=== PATIENT | female | born 1965 | race African-American/Black ===

== ENCOUNTER 2016-12-11 10:01 | Emergency (ER) | payer MEDICAID, OTHER ==
[~2016-12-11] VITALS: Ht 160 cm; Wt 114.0 kg
[~2016-12-11 10:01] MED LIST: ASPI-94 PO; FIORIC PO; GLIP5TAB8 PO; LISI-363 PO; LISI10TA PO; METF-324 PO; METO25 PO; RANI150T PO
[2016-12-11 10:27] VITALS: BP 130/75; PULSE 80; RESP 15; TEMP 97.9; O2SAT 98
[2016-12-11] MEDS ORDERED: LISI10TA PO (11:01)
[2016-12-11] MEDS ORDERED: METF-382 PO (11:01)
[2016-12-11] MEDS ORDERED: ASPI81CH37 CHEW (11:01)
[2016-12-11] MEDS ORDERED: LISI-515 PO (11:01)
[2016-12-11] MEDS ORDERED: METO25TA3 PO (11:01)
--- NOTE | 2016-12-11 11:15 | PD ---
HPI Chief Complaint: Legislative Assistant Problem/Complaint Time Seen by Provider: 11:03 Travel History International Travel<30 days: No Contact w/Intl Traveler<30days: No Traveled to known affect area: No History of Present Illness HPI 51-year-old female with history of diabetes, HTN, HLD here with complaint of 4- 5 days of vaginal itching and discomfort. She notes a slight increase in her vaginal discharge. She denies any new sexual partners, high-risk sexual behavior. Pain is really within the vaginal vault, no pain within the pelvis, abdomen. She denies any history of STD. Slight pain with urination, but no urinary frequency, hematuria, flank pain. PFSH Past Medical History Hx Anticoagulant Therapy: Yes (BABY ASPIRIN A DAY) Anemia: Yes Cardiovascular Problems: Yes (HTN) High Cholesterol: Yes Diabetes: Yes Patient Takes Glucophage: Yes Diminished Hearing: No GERD: Yes Hypertension: Yes Neurologic: Yes (PVD) ?: Not Menopausal: Yes Past Surgical History Section: Yes Cholecystectomy: Yes (IN 2005) Family History Family Hypercholesterolemia: Yes Social History Alcohol Use: Yes (2 BEERS DAILY) Tobacco Use: No Substance Use: No Allergies-Medications (Allergen,Severity, Reaction): Coded Allergies: Codeine (Verified Allergy, Severe, Hallucinations, 12/29/15) Reported Meds & Prescriptions Reported Meds & Active Scripts Active Flagyl (Metronidazole) 500 Mg Tab 500 Mg PO TID 7 Days Glipizide 5 Mg Tab 5 Mg PO BIDAC Take 30 minutes before a meal Reported Metoprolol Tartrate 25 Mg Tab 25 Mg PO BID Metformin ER (Metformin HCl) 1,000 Mg Luciano 1,000 Mg PO BID With evening meal Lisinopril-Hctz 10-12.5 Mg Tab 1 Tab PO DAILY Lisinopril 20 Mg Tab 20 Mg PO DAILY Aspirin Low Dose (Aspirin) 81 Mg Chew 81 Mg CHEW DAILY Review of Systems Except as stated in HPI: all other systems reviewed are Neg Physical Exam Narrative GENERAL: Morbidly obese female in no acute distress SKIN: Warm and dry. HEAD: Normocephalic. EYES: No scleral icterus. No injection or drainage. ENT: Poor dentition NECK: Supple CARDIOVASCULAR: Regular rate and rhythm. RESPIRATORY: No accessory muscle use. GASTROINTESTINAL: Abdomen soft, non-tender, nondistended. GENITOURINARY: Normal external female genitalia. Speculum examination reveals chunky white vaginal discharge with mild erythema of the vaginal wall and cervix. No cervical motion tenderness, uterine or adnexal tenderness or fullness on exam MUSCULOSKELETAL: Normal gait NEUROLOGICAL: Awake and alert. Normal speech. PSYCHIATRIC: Appropriate mood and affect; insight and judgment normal. Data Data Last Documented VS Vital Signs Date Time Temp Pulse Resp B/P Pulse Ox O2 Delivery O2 Flow Rate FiO2 12/11/16 10:27 97.9 80 15 130/75 98 Orders Gc And Chlamydia Pcr (12/11/16 11:05) Wet Prep Profile (12/11/16 11:05) Urinalysis - C+S If Indicated (12/11/16 11:12) Urine Culture (12/11/16 11:22) Labs Laboratory Tests Test 12/11/16 11:22 Urine Color LIGHT-YELLOW Urine Turbidity HAZY Urine pH 5.0 Urine Specific [place] 1.020 Urine Protein NEG mg/dL Urine Glucose (UA) 1000 mg/dL Urine Ketones NEG mg/dL Urine Occult Blood NEG Urine Nitrite NEG Urine Bilirubin NEG Urine Urobilinogen LESS THAN 2.0 MG/DL Urine Leukocyte Esterase LARGE Urine RBC 8 /hpf Urine WBC 9 /hpf Urine Squamous Epithelial 4 /hpf Cells Urine Bacteria MOD /hpf Urine Mucus FEW /lpf Microscopic Urinalysis Comment CULTURE INDICATED Clue Cells (Wet Prep) PRESENT Vaginal Trichomonas (Wet Prep) NONE SEEN Vaginal Yeast (Wet Prep) NONE SEEN MDM Medical Decision Making Medical Screen Exam Complete: Yes Emergency Medical Condition: Yes Medical Record Reviewed: Yes Differential Diagnosis 51-year-old female here with complaint of 4-5 days of vaginal itching and discomfort, slight vaginal discharge. Differential includes bacterial vaginosis , yeast infection, vaginitis, UTI. Trichomonas, GC and Chlamydia are other STD less likely given benign pelvic examination. Narrative Course Would not empirically treat her for gonorrhea or chlamydia based on her examination and symptoms. GC and Chlamydia sent. Wet prep, urinalysis showed bacterial vaginosis. Large leukocyte esterase with white cells and bacteria. Diagnosis Primary Impression: Bacterial vaginosis Additional Impression: Cystitis Referrals: Primary Care Physician as needed Patient Instructions: Bacterial Vaginosis (ED), General Instructions, Urinary Tract Infection in Women (DC) Additional Instructions: Finish antibiotics as prescribed. Med/Other Pt SpecificInfo: Prescription(s) given Scripts Sulfamethoxazole-Trimethoprim (Bactrim DS)800-160 Mg Tab1 Tab PO BID #6 TAB Ref 0 Prov:Amy Peck MD 12/11/16 Metronidazole (Flagyl)500 Mg [id number] Mg PO TID 7 Days Ref 0 Prov:Amy Peck MD 12/11/16 Disposition: 01 DISCHARGE HOME Condition: Stable Amy Peck MD Dec 11, 2016 11:15
[2016-12-11] MEDS ORDERED: METR-1 PO (12:14)
[2016-12-11 12:20] LABS: BACTERIA, URINE MOD /hpf; BLOOD, URINE NEG (NEG); COMMENT (UR) CULTURE INDICATED; CULTURE IF INDICATED CULTURE INDICATED; GLUCOSE,URINE 1000 mg/dL (NEG); KETONE, URINE NEG (NEG); MUCUS URINE FEW /lpf (OCC); NITRITE,URINE NEG (NEG); SQUAMOUS EPITHELIAL CELL URINE 4 /hpf (0-5); URINE COLOR LIGHT-YELLOW (YELLW/STRAW)
[2016-12-11] MEDS ORDERED: BACT800T5 PO (12:28)
[2016-12-11 15:20] LABS: CHLAMYDIA PCR NOT DETECTED (NOT DETECT); NEISSERIA PCR NOT DETECTED (NOT DETECT)
[2016-12-25] MEDS ORDERED: GLIP5TAB8 PO (13:35)
[2016-12-25] MEDS ORDERED: LISI10TA PO (13:36)
[2016-12-25] MEDS ORDERED: LISI-515 PO (13:36)
[2016-12-30] MEDS ORDERED: GABA300C5 PO (12:12)
[2016-12-30] MEDS ORDERED: METO25TA3 PO (12:12)
[2016-12-30] MEDS ORDERED: RANI150C PO (12:12)
[2017-01-13] MEDS ORDERED: LISI20TA PO (10:37)
[2017-01-13] MEDS ORDERED: HYDR12.57 PO (10:56)
[2017-01-13] MEDS ORDERED: GLIP10TA6 PO (10:56)
[2017-01-13] MEDS ORDERED: LISI30TA4 PO (10:56)
[2017-01-13] MEDS ORDERED: METF-382 PO (10:58)
== END 2016-12-11 12:50 | disposition home or self-care (01) ==
LOC: NEPB 10:01
DX: N76.0 Acute vaginitis (principal); N30.90 Cystitis, unspecified without hematuria; B96.20 Unspecified Escherichia coli [E. coli] as the cause of diseases classified elsewhere; I10 Essential (primary) hypertension; E11.9 Type 2 diabetes mellitus without complications; E78.00 Pure hypercholesterolemia, unspecified; Z79.82 Long term (current) use of aspirin; Z79.84 Long term (current) use of oral hypoglycemic drugs; Z86.2 Personal history of diseases of the blood and blood-forming organs and certain disorders involving the immune mechanism; Z86.79 Personal history of other diseases of the circulatory system; Z87.19 Personal history of other diseases of the digestive system; Z86.69 Personal history of other diseases of the nervous system and sense organs
CPT/HCPCS: 81001; 87077; 87086; 87186; 87210; 87491; 87591; 99283

== ENCOUNTER → 2017-01-07 | Outpatient (CLI) | payer MEDICAID, OTHER ==
[~2017-01-07] MED LIST changes: -ASPI-94 PO; +ASPI81CH37 CHEW; -FIORIC PO; +GABA300C5 PO; +GLIP10TA6 PO; +HYDR12.57 PO; -LISI-363 PO; +LISI-515 PO; +LISI20TA PO; +LISI30TA4 PO; -METF-324 PO; +METF-382 PO; -METO25 PO; +METO25TA3 PO; +RANI150C PO; -RANI150T PO
[2017-01-07 08:09] LABS: HEMATOCRIT 37.3 % (35.0-46.0); MEAN CELL VOLUME 88.7 FL (80.0-100.0); MEAN CORPUSCULAR HEMOGLOBIN 29.5 PG (27.0-34.0); MEAN CORPUSCULAR HGB CONC 33.3 % (32.0-36.0); PLATELET COUNT 319 TH/MM3 (150-450); RED CELL DISTRIBUTION WIDTH 13.7 % (11.6-17.2); REVIEW FLAG FINAL; WHITE BLOOD COUNT 8.6 TH/MM3 (4.0-11.0)
[2017-01-07 08:30] LABS: ALT (GPT) 23 U/L (10-53); ANION GAP 8 MEQ/L (5-15); AST (GOT) 15 U/L (15-37); BICARBONATE 26.5 MEQ/L (21.0-32.0); BLOOD UREA NITROGEN 6 MG/DL (7-18); CHLORIDE 103 MEQ/L (98-107); GLOMERULAR FILTRATION RATE 123 ML/MIN (>89); GLUCOSE,FASTING 235 MG/DL (74-99); POTASSIUM 3.9 MEQ/L (3.5-5.1); SODIUM (NA) 137 MEQ/L (136-145)
[2017-01-07 08:39] LABS: ALKALINE PHOSPHATASE 100 U/L (45-117); LDL CHOLESTEROL 117 MG/DL (0-99); TOTAL BILIRUBIN ADULT 0.3 MG/DL (0.2-1.0)
[2017-01-07 16:05] LABS: HEMOGLOBIN A1a 1.5 %; HEMOGLOBIN A1b 2.9 %; HEMOGLOBIN Ao 76.9 %; HEMOGLOBIN LA1C 2.8 %; HEMOGLOBIN P3 4.5 %
== END ==
LOC: CLAB 07:36
PROVIDERS: ATTEND Nurse Practitioner Family
DX: E11.9 Type 2 diabetes mellitus without complications (principal); I10 Essential (primary) hypertension; E66.9 Obesity, unspecified
CPT/HCPCS: 36415; 80053; 80061; 83036; 84443; 85027

== ENCOUNTER → 2017-04-07 | Outpatient (CLI) | payer SELFPAY ==
[~2017-04-07] MED LIST changes: -GLIP5TAB8 PO; -LISI-515 PO; -LISI10TA PO; -LISI20TA PO
[2017-04-07 10:26] LABS: HDL CHOLESTEROL 45.7 MG/DL (40.0-60.0); LDL CHOLESTEROL 97 MG/DL (0-99)
[2017-04-07 16:49] LABS: HEMOGLOBIN A1a 1.2 %; HEMOGLOBIN A1b 2.7 %; HEMOGLOBIN Ao 78.2 %; HEMOGLOBIN LA1C 3.2 %; HEMOGLOBIN P3 4.6 %
== END ==
LOC: CLAB 09:29
PROVIDERS: ATTEND Nurse Practitioner Family
DX: E11.9 Type 2 diabetes mellitus without complications (principal); E78.2 Mixed hyperlipidemia
CPT/HCPCS: 36415; 80061; 83036

== ENCOUNTER → 2017-06-23 | Outpatient (CLI) | payer OTHER ==
[~2017-06-23] MED LIST changes: +METR-1 PO; +PRAV20TA2 PO
[2017-06-23 10:40] LABS: HDL CHOLESTEROL 49.5 MG/DL (40.0-60.0); LDL CHOLESTEROL 112 MG/DL (0-99)
[2017-06-23 16:56] LABS: HEMOGLOBIN A1a 1.4 %; HEMOGLOBIN A1b 2.8 %; HEMOGLOBIN Ao 77.3 %; HEMOGLOBIN LA1C 3.2 %; HEMOGLOBIN P3 4.8 %
== END ==
LOC: CLAB 09:25
PROVIDERS: ATTEND Nurse Practitioner Family
DX: E11.9 Type 2 diabetes mellitus without complications (principal); E78.5 Hyperlipidemia, unspecified
CPT/HCPCS: 36415; 80061; 83036